=== PATIENT | male | born 1945 | race Caucasian/White ===

== ENCOUNTER 2021-09-22 07:23 | Observation (INO) | payer MEDICARE, OTHER ==
[2021-09-20 10:27] LABS: BASOPHILS # (AUTO) 0.1 (0.0-0.1); BASOPHILS % 0.7 % (0.0-1.0); EOSINOPHILS # (AUTO) 0.3 (0.0-0.4); EOSINOPHILS % 2.6 % (0.0-6.0); HEMATOCRIT 41.9 % (38.2-49.6); HEMOGLOBIN 14.1 g/dL (14.0-18.0); LYMPHOCYTES # (AUTO) 1.1 (1.0-3.2); LYMPHOCYTES % 10.9 % (18.0-39.1); MEAN CORPUSCULAR HGB CONC 33.7 g/dL (31-35); MEAN CORPUSCULAR VOLUME 95.2 fL (81-99); MONOCYTES # (AUTO) 0.7 (0.2-0.8); MONOCYTES % 6.9 % (4.4-11.3); NEUTROPHILS # (AUTO) 7.7 (2.1-6.9); NEUTROPHILS % 78.6 % (38.7-80.0); PLATELET COUNT 177 x10e3/uL (140-360)
[2021-09-20 10:44] LABS: ANION GAP 8.6 mmol/L (8-16); CALCIUM 9.1 mg/dL (8.4-10.2); CREATININE, SERUM 0.84 mg/dL (0.72-1.25); POTASSIUM 4.6 mmol/L (3.5-5.1)
[~2021-09-22] VITALS: Ht 375.9 cm; Wt 88.5 kg
[~2021-09-22 07:23] MED LIST: AFRIN15 ML INH; ALFUZOSIN HCL10 MG; AMLODIPINE BESYL5 MG PO; CENTRUM SILVER1 EAC6; METAMUCIL FIBE3.4 GM PO
[2021-09-22] MEDS ORDERED: SODIUM CHLORIDE 0.9% 50ML 50 ML ONE (08:28)
[2021-09-22] MEDS ORDERED: CEFTRIAXONE 1 GM VIAL ONE (08:28)
[2021-09-22] MEDS ORDERED: LIDOCAINE HCL 1% 2 ML AMP ONE (08:31)
[2021-09-22 11:55] VITALS: BP 143/56
[2021-09-22 12:11] VITALS: BP 156/67
[2021-09-22] MEDS ORDERED: OXYMETAZOLINE HCL 0.05% NAS 1 SPRAY BTL SCH (12:30)
[2021-09-22] MEDS ORDERED: ACETAMINOPHEN/CODEINE 300MG - 30MG TAB PO PRN ×2 (12:30)
[2021-09-22 12:44] VITALS: BP 156/67
[2021-09-22] MEDS ORDERED: SEVOFLURANE INHAL SOLN 250 ML PEN BTL ONE (12:49)
[2021-09-22] MEDS ORDERED: DEXAMETHASONE SOD PHOS INJ 4 MG/ML SDV ONE (12:49)
[2021-09-22] MEDS ORDERED: GLYCOPYRROLATE INJ 0.2 MG/ML VIAL ONE (12:49)
[2021-09-22] MEDS ORDERED: PROPOFOL IV EMULSION 10 MG/ML 20 ML VIAL ONE (12:49)
[2021-09-22] MEDS ORDERED: EPHEDRINE SULFATE INJ 50 MG/ML VIAL ONE (12:49)
[2021-09-22] MEDS ORDERED: LIDOCAINE HCL 2% LOCAL INJ 5 ML SDV VIAL INJ ONE (12:49)
[2021-09-22] MEDS ORDERED: ONDANSETRON HCL INJ 2MG/ML 2ML 2 MG/ML VIAL ONE (12:49)
[2021-09-22] MEDS ORDERED: POVIDONE IODINE 0.05% 0.05 % ML PO ONE (12:49)
[2021-09-22 14:26] VITALS: BP 156/67
[2021-09-22 15:55] VITALS: BP 143/56
[2021-09-22] MEDS ORDERED: FENTANYL CITRATE/PF 100MCG/2 ML INJ ONE (16:52)
[2021-09-22] MEDS ORDERED: MIDAZOLAM HCL 2 MG/2 ML VIAL ONE (16:52)
[2021-09-22 20:00] VITALS: BP 161/58
[2021-09-22] MEDS ORDERED: NON-FORMULARY MEDICATION PO SCH (21:00)
[2021-09-23] VITALS: BP 128/58
[2021-09-23 04:00] VITALS: BP 129/59
[2021-09-23 04:26] VITALS: BP 128/58
[2021-09-23 08:33] VITALS: BP 151/59
[2021-09-23] MEDS ORDERED: MULTIVITAMINS/MINERALS TAB PO SCH (09:00)
[2021-09-23] MEDS: AMLODIPINE BESYLATE 5 MG TAB PO SCH ×2 (09:00→09:18)
[2021-09-23] MEDS: ALFUZOSIN HCL 10 MG TAB.ER.24H PO SCH ×2 (09:00→09:18)
[2021-09-23] MEDS ORDERED: PSYLLIUM 6GM PACKET PO SCH (09:00)
[2021-09-23 09:27] VITALS: BP 151/59
== END 2021-09-23 10:59 | disposition home or self-care (01) ==
LOC: OR 07:23 → PACU V 11:34 → MED/SURG 11:55
PROVIDERS: ADMIT Urology; ATTEND Urology
DX: N32.0 Bladder-neck obstruction (principal); M17.0 Bilateral primary osteoarthritis of knee; I10 Essential (primary) hypertension; K40.90 Unilateral inguinal hernia, without obstruction or gangrene, not specified as recurrent; H91.8X3 Other specified hearing loss, bilateral; Z01.810 Encounter for preprocedural cardiovascular examination; Z01.812 Encounter for preprocedural laboratory examination; Z01.818 Encounter for other preprocedural examination; Z87.440 Personal history of urinary (tract) infections; Z20.822 Contact with and (suspected) exposure to COVID-19
CPT/HCPCS: 36415; 52601; 71046; 80048; 85025; 88305; 93005; G0378 ×2; J0696; J1100; J2001 ×2; J2250; J2405; J2704; J3010; U0002; 88304